=== PATIENT | female | born 1955 | race Two or more races ===

== ENCOUNTER 2017-10-05 10:30 | Outpatient (CLI) | payer OTHER ==
[~2017-10-05 10:30] MED LIST: ATACAND32 MG PO; INTESTINEX680 MG PO; NORVASC5 MG PO; OXYC1TAB9 PO; PROTONIX40 MG PO; TOPROL XL25 M1 PO
== END 2017-10-05 10:40 | disposition home or self-care (01) ==
LOC: LAB 10:30
DX: D68.62 Lupus anticoagulant syndrome (principal); D68.61 Antiphospholipid syndrome; E06.3 Autoimmune thyroiditis; D51.3 Other dietary vitamin B12 deficiency anemia; I10 Essential (primary) hypertension; K57.30 Diverticulosis of large intestine without perforation or abscess without bleeding; D55.0 Anemia due to glucose-6-phosphate dehydrogenase [G6PD] deficiency; D51.8 Other vitamin B12 deficiency anemias; D50.8 Other iron deficiency anemias

== ENCOUNTER 2017-10-11 10:20 | Outpatient (CLI) | payer OTHER | END 2017-10-11 15:04 | disposition home or self-care (01) | LOC: SONOGRAMA 10:20 | DX: E06.3 Autoimmune thyroiditis (principal) ==

== ENCOUNTER → 2017-11-22 07:41 | Outpatient (CLI) | payer OTHER | END | disposition home or self-care (01) | LOC: RAD 07:41 | DX: C73 Malignant neoplasm of thyroid gland (principal) ==

== ENCOUNTER → 2017-11-22 | Outpatient (CLI) | payer OTHER | END | disposition home or self-care (01) | LOC: LAB 07:39 | DX: D68.62 Lupus anticoagulant syndrome (principal); D68.61 Antiphospholipid syndrome; C73 Malignant neoplasm of thyroid gland; E06.3 Autoimmune thyroiditis; D51.3 Other dietary vitamin B12 deficiency anemia; I10 Essential (primary) hypertension; K57.30 Diverticulosis of large intestine without perforation or abscess without bleeding; D50.8 Other iron deficiency anemias; D51.8 Other vitamin B12 deficiency anemias; D68.8 Other specified coagulation defects ==

== ENCOUNTER 2017-12-05 10:00 | Day surgery (SDC) | payer OTHER ==
[~2017-12-05] VITALS: Ht 157.5 cm; Wt 57.6 kg
[~2017-12-05 10:00] MED LIST changes: +ASA81 MG PO; +VITAMIN D3400 UNI1 PO
[2017-12-06] MEDS ORDERED: PERCOCET 5-3251 EACH PO (10:07)
[2017-12-06] MEDS ORDERED: CALCITRIOL0.5 MCG PO (10:07)
== END 2017-12-06 08:00 | disposition home or self-care (01) ==
LOC: CIR.AMB 10:00 → O/R 12-06 12:10
DX: C73 Malignant neoplasm of thyroid gland (principal)

== ENCOUNTER 2018-02-11 09:33 | Outpatient (CLI) | payer OTHER ==
[~2018-02-11 09:33] MED LIST changes: +CALCITRIOL0.5 MCG PO; +PERCOCET 5-3251 EACH PO
== END 2018-02-11 10:53 | disposition home or self-care (01) ==
LOC: NUCLEAR 09:33
DX: C73 Malignant neoplasm of thyroid gland (principal); E89.0 Postprocedural hypothyroidism
CPT/HCPCS: 79005; A9517

== ENCOUNTER 2018-02-15 12:50 | Outpatient (CLI) | payer OTHER | END 2018-02-15 13:15 | disposition home or self-care (01) | LOC: NUCLEAR 12:50 | DX: C73 Malignant neoplasm of thyroid gland (principal); E89.0 Postprocedural hypothyroidism ==

== ENCOUNTER 2018-05-09 07:54 | Day surgery (SDC) | payer OTHER | END 2018-05-09 12:45 | disposition home or self-care (01) | LOC: AMB-ENDOS 07:54 | DX: K57.30 Diverticulosis of large intestine without perforation or abscess without bleeding (principal) ==